=== PATIENT | male | born 1980 | race Two or more races ===

== ENCOUNTER 2018-04-28 09:47 | Emergency (ER) | payer SELFPAY ==
[~2018-04-28] VITALS: Ht 190.5 cm; Wt 97.5 kg
[2018-04-28 10:31] VITALS: BP 136/81
[2018-04-28] MEDS ORDERED: ZITHROMAX250 MG ORAL (10:46)
[2018-04-28] MEDS ORDERED: IBUPROFEN600 MG ORAL (10:48)
[2018-04-28] MEDS ORDERED: GUAIFENESIN DM118 M1 ORAL (10:48)
[2018-04-28 10:55] VITALS: BP 127/79
--- NOTE | 2018-04-28 15:07 | Emergency Room Report ---
History of Present Illness General Chief Complaint: Sore Throat Source: Patient Present Illness HPI Patient 37-year-old male presented after increased sore throat gradual onset of symptoms. Patient been taking [id number] cold medications. He had not been having any vomiting he reports having subjective fever. He denies severe headache or neck stiffness. The patient reported having severe sore throat. He had intermittent paroxysms of cough. He denies any vocal changes. Allergies: Coded Allergies: No Known Allergies (Unverified , 04/28/18) Patient History Past Medical History: see triage record Reviewed Nursing Documentation: PMH: Agreed; PSxH: Agreed Nursing Documentation-PM Past Medical History: No Stated History Review of Systems All Other Systems: negative except mentioned in HPI Physical Exam Vital Signs Date Time Temp Pulse Resp B/P (MAP) Pulse Ox O2 Delivery O2 Flow Rate FiO2 04/28/18 09:52 98.5 79 20 136/81 95 Room Air 98.4 General Appearance: well appearing, no apparent distress, alert, GCS 15 Head: normocephalic, atraumatic ENT: normal voice, uvula midline, pharyngeal erythema Neck: full range of motion, supple Respiratory: no respiratory distress, speaking full sentences Musculoskeletal: normal inspection, no calf tenderness Neurologic: normal inspection, alert, oriented x3, responsive, supervisor backfilling III-XII nml as tested, normal gait Psychiatric: mood/affect normal Skin: no rash Medical Decision Making Diagnostic Impression: Primary Impression: Acute bacterial pharyngitis ER Course Patient was sent for sore throat. Differential diagnosis included but was not limited to meningitis, exudative tonsillitis, retropharyngeal abscess, epiglottitis, strep pharyngitis.The patient was given a prescription for oral azithromycin due paroxysmal cough concerning for possible pertussisThe patient is given prescription for oral cough medications.The patient is advised to follow up with primary care doctor in 1-2 days. Patient is advised to return if any worsening condition or if any changes in status that are concerning. This report is dictated with [employer] skilled helper software which may occasionally lead to discrepancies related to use of this software. Last Vital Signs Date Time Temp Pulse Resp B/P (MAP) Pulse Ox O2 Delivery O2 Flow Rate FiO2 04/28/18 10:55 98.4 88 20 127/79 97 Room Air 98.4 Status: improved Disposition: HOME, SELF-CARE Condition: Stable Scripts Guaifenesin/Dextromethorphan (Guaifenesin Dm Syrup) 5 Ml Syrup 1 TSP ORAL Q8H, #118 ML 0 Refills Prov: Otto Samaniego MD 04/28/18 Ibuprofen* (MOTRIN*) 600 Mg Tablet 600 MG ORAL Q6H PRN for For Pain, #30 TAB Prov: Otto Samaniego MD 04/28/18 Azithromycin* (ZITHROMAX*) 250 Mg Tablet 250 MG ORAL DAILY, #6 TAB 0 Refills Take two tables once daily for 1 day, then one tablet once daily for 4 days. Prov: Otto Samaniego MD 04/28/18 Patient Instructions: Sore Throat Otto Samaniego MD Apr 28, 2018 15:07
== END 2018-04-28 10:55 | disposition home or self-care (01) ==
LOC: EMR 10:41
DX: J02.8 Acute pharyngitis due to other specified organisms (principal)
CPT/HCPCS: 99283